=== PATIENT | female | born 1950 | race Caucasian/White ===

== ENCOUNTER 2018-12-30 08:40 | Day surgery (SDC) | payer MEDICARE, SELFPAY ==
[2018-12-22 09:17] VITALS: BMI 32.2
[2018-12-30] VITALS (11 sets, daily range): BP systolic 88–173; BP diastolic 67–108; PULSE 68–86; RESP 16–18; TEMP 36.1–36.6; O2SAT 97–100; BMI 30.9
--- NOTE | 2018-12-30 10:15 | EGD_PTH ---
PATIENT: LAURITA ELMORE LOC: EN U#:[id number] AGE/SX: 68/F ROOM: RE12/30/[address]: Dr. Darian Cohen MD : 1950 BED: DIS: 12/30/2018 SPEC #: [id number] RECD: 12/30/18 13:16 STATUS: TAMIKA KWABENA #: [id number] DUNCAN: 12/30/18 10:[address]: Darian Cohen DEPT: SURGICAL PATHOLOGY RECD BY: Jorge Calderon ENTERED: 12/30/18 13:35 SP TYPE: EGD BIOPSY OTHR DR: Dr. Micky Jaimes MD Tissues: A - Gastric mucous membrane B - Gastric mucous membrane C - Esophageal mucous membrane Procedures: PAS Fungus (control) Special Stain Group I Surgery Specimen Level IV HEADER OPERATION: Colonoscopy, EGD (MOD) PRE-OP DIAGNOSIS: Anemia, rectal bleeding, history of Jennings's, family history of colon cancer TISSUE SUBMITTED: A - Antral biopsy and H. pylori, B - Fundic polyp, C - Distal esophagus MICROSCOPIC DIAGNOSIS A. Gastric antrum, biopsy: Mild chronic gastritis. See comment. B. Gastric fundic polyp, biopsy: Fundic gland polyp. C. 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 Fragments of gastric mucosa with mild hyperplastic change. Squamous mucosa with focal acute inflammation. Fibrinopurulent material suggestive of ulcer. Indefinitive for mild dysplasia. See comment. AM:mark 01/02/19 COMMENT A. The results of immunohistochemistry for Helicobacter pylori will be reported separately ([id number]). C. Immunohistochemistry ([id number]) supports the above diagnosis. PASF stain is negative for fungal organisms. Matched control is appropriate. Case has been reviewed in consultation with Dr. Jorge who concurs with the above diagnosis. IDC:SJ MICROSCOPIC DESCRIPTION Slides are reviewed. GROSS DESCRIPTION A - Received in fixative is one container labeled with the patient's name and designated antral biopsy. The specimen consists of one irregular fragment of light duke soft tissue that measures 0.3 x 0.3 x 0.1 cm. The specimen is totally submitted in one cassette. B - Received in fixative is one container labeled with the patient's name and designated fundic polyp. The specimen consists of one irregular fragment of light duke soft tissue that measures 0.5 x 0.3 x 0.1 cm. The specimen is totally submitted in one cassette. C - Received in fixative is one container labeled with the patient's name and designated distal esophagus. The specimen consists of multiple irregular fragments of light duke soft tissue that in aggregate measure 1.5 x 1 x 0.1 cm. The specimen is totally submitted in one cassette. / SJ:rg 12/30/18 TC:4 CPT: 35521 x3, 43394
--- NOTE | 2018-12-30 10:15 | IMM_PTH ---
PATIENT: LAURITA ELMORE LOC: EN U#:[id number] AGE/SX: 68/F ROOM: RE12/30/[address]: Dr. Darian Cohen MD : 1950 BED: DIS: 12/30/2018 SPEC #: [id number] RECD: 12/30/18 15:42 STATUS: TAMIKA KWABENA #: [id number] DUNCAN: 12/30/18 10:[address]: Darian Cohen DEPT: IMMUNOHISTOCHEMISTRY RECD BY: Nazia Stuart ENTERED: 12/30/18 15:42 SP TYPE: IMMUNO OTHR DR: Dr. Micky Jaimes MD Tissues: A - Stomach, NOS Procedures: H Pylori (initial) P53 (initial) MASON-2 (add) PHYSICIAN & INSTITUTION [place] [id number] SPECIMEN INFORMATION: Tissue Source: A - Antral biopsy, C - Distal esophagus Clinical Info: Anemia, rectal bleeding, history of Jennings's, family history colon CA Specimen Number: [id number] A & C CPT code: 93593 x2, 83178 METHODOLOGY: Deparaffinized sections of prefer/formalin-fixed tissue or PAP/DQ stained slides are incubated with monoclonal/polyclonal antibodies/oligonucleotide probes. Localization is made via biotin free immunoperoxidase method. Appropriate controls are performed and reacted as expected. Results on target cell population are indicated in the following table: RESULTS: ANTIBODY / CLONE RESULT Block A H Pylori (polyclonal) negative Block C P53 (DO-7) positive, <25% MASON-2 (SP21) positive These tests were developed and their performance characteristics determined by [facility]. They may not have been cleared or approved by the U.S. Food and Drug Administration. The FDA has determined that such clearance or approval is not necessary. INTERPRETATION: A. Antral biopsy: Negative for Helicobacter pylori organisms. C. Distal esophagus, biopsy: Intestinal metaplasia. Indefinite for low grade dysplasia. AM:mark 01/03/19 Case has been reviewed in consultation with Dr. Jorge who concurs with the above diagnosis. IDC:[id number]
--- NOTE | 2018-12-30 11:33 | OP.ENDO_ITS ---
Patient Name: Christina Zamora Procedure Date: 12/30/2018 10:42 AM Date of : 1950 Age: 68 Procedure: Upper GI endoscopy Indications: Iron deficiency anemia Providers: Darian Cohen MD Medicines: Midazolam 2 mg IV, Meperidine 50 mg IV Complications: No immediate complications. Procedure: Pre-Anesthesia Assessment: - Prior to the procedure, a History and Physical was performed, and patient medications and allergies were reviewed. The patient's tolerance of previous anesthesia was also reviewed. The risks and benefits of the procedure and the sedation options and risks were discussed with the patient. All questions were answered, and informed consent was obtained. Prior Anticoagulants: The patient has taken no previous anticoagulant or antiplatelet agents. ASA Grade Assessment: II - A patient with mild systemic disease. After reviewing the risks and benefits, the patient was deemed in satisfactory condition to undergo the procedure. After obtaining informed consent, the endoscope was passed under direct vision. Throughout the procedure, the patient's blood pressure, pulse, and oxygen saturations were monitored continuously. The gastroscope was introduced through the mouth, and advanced to the second part of duodenum. The upper GI endoscopy was accomplished without difficulty. The patient tolerated the procedure well. Moderate Sedation: Moderate (conscious) sedation was personally administered by the endoscopist. The following parameters were monitored: oxygen saturation, heart rate, blood pressure, and response to care. Total physician intraservice time was 15 minutes. Scope In: 11:01:48 AM Scope Out: 11:11:21 AM Total Procedure Duration Time 0 hours 9 minutes 33 seconds Findings: LA Grade B (one or more mucosal breaks greater than 5 mm, not extending between the tops of two mucosal folds) esophagitis with no bleeding was found 34 cm from the incisors. Biopsies were taken with a cold forceps for histology. A large hiatal hernia was present. Diffuse mildly erythematous mucosa without bleeding was found in the gastric antrum. Biopsies were taken with a cold forceps for histology. Multiple sessile polyps with no stigmata of recent bleeding were found in the gastric fundus. Biopsies were taken with a cold forceps for histology. The examined duodenum was normal. Impression: - LA Grade B reflux esophagitis. Rule out Jennings's esophagus. Biopsied. - Large hiatal hernia. Very large area of suspected Jennings's and reflux and hiatal hernia--extensive - Erythematous mucosa in the antrum. Biopsied. - Multiple gastric polyps. Biopsied. - Normal examined duodenum. Recommendation: - Discharge patient to home. - Resume previous diet. - Continue present medications. - Return to my office in 1 week. Procedure Code(s): --- Professional --- 33937, Esophagogastroduodenoscopy, flexible, transoral; with biopsy, single or multiple 92045, 59, Moderate sedation services provided by the same physician or other qualified health healthcare network consultant performing the diagnostic or therapeutic service that the sedation supports, requiring the presence of an independent trained observer to assist in the monitoring of the patient's level of consciousness and physiological status; initial 15 minutes of intraservice time, patient age 5 years or older Diagnosis Code(s): --- Professional --- K21.0, Gastro-esophageal reflux disease with esophagitis K44.9, Diaphragmatic hernia without obstruction or gangrene K31.89, Other diseases of stomach and duodenum K31.7, Polyp of stomach and duodenum D50.9, Iron deficiency anemia, unspecified CPT copyright 2017 [employer]. All rights reserved. The codes documented in this report are preliminary and upon oil well engineer review may be revised to meet current compliance requirements. Darian Cohen MD 12/30/2018 11:32:10 AM This report has been signed electronically. Number of Addenda: 0 Note Initiated On: 12/30/2018 10:42 AM
--- NOTE | 2018-12-30 11:36 | OP.ENDO_ITS ---
Patient Name: Christina Zamora Procedure Date: 12/30/2018 11:13 AM Date of : 1950 Age: 68 Procedure: Colonoscopy Indications: Iron deficiency anemia Providers: Darian Cohen MD Medicines: Midazolam 1 mg IV, Meperidine 25 mg IV Patient Profile: Last Colonoscopy: September 2013. Complications: No immediate complications. Procedure: Pre-Anesthesia Assessment: - Prior to the procedure, a History and Physical was performed, and patient medications and allergies were reviewed. The patient's tolerance of previous anesthesia was also reviewed. The risks and benefits of the procedure and the sedation options and risks were discussed with the patient. All questions were answered, and informed consent was obtained. Prior Anticoagulants: The patient has taken no previous anticoagulant or antiplatelet agents. ASA Grade Assessment: II - A patient with mild systemic disease. After reviewing the risks and benefits, the patient was deemed in satisfactory condition to undergo the procedure. After I obtained informed consent, the scope was passed under direct vision. Throughout the procedure, the patient's blood pressure, pulse, and oxygen saturations were monitored continuously. The Colonoscope was introduced through the anus and advanced to the cecum, identified by appendiceal orifice and ileocecal valve. The colonoscopy was performed without difficulty. The patient tolerated the procedure well. The quality of the bowel preparation was adequate to identify polyps. The ileocecal valve and the appendiceal orifice were photographed. Moderate Sedation: Moderate (conscious) sedation was personally administered by the endoscopist. The following parameters were monitored: oxygen saturation, heart rate, blood pressure, and response to care. Total physician intraservice time was 15 minutes. Scope In: 11:14:31 AM Scope Withdrawal Time 0 hours 7 minutes 25 seconds Scope Out: 11:26:20 AM Total Procedure Duration Time 0 hours 11 minutes 49 seconds Findings: Hemorrhoids were found on perianal exam. Multiple diverticula were found in the sigmoid colon and descending colon. Impression: - Hemorrhoids found on perianal exam. - Diverticulosis in the sigmoid colon and in the descending colon. - No specimens collected. Recommendation: - Discharge patient to home. - Resume previous diet. - Continue present medications. - Repeat colonoscopy in 5 years for surveillance. - Return to my office in 1 week. No source for lower GI blood loss Procedure Code(s): --- Professional --- 98708, Colonoscopy, flexible; diagnostic, including collection of specimen(s) by brushing or washing, when performed (separate procedure) 98070, 59, Moderate sedation services provided by the same physician or other qualified health nurse behavioral health care performing the diagnostic or therapeutic service that the sedation supports, requiring the presence of an independent trained observer to assist in the monitoring of the patient's level of consciousness and physiological status; initial 15 minutes of intraservice time, patient age 5 years or older Diagnosis Code(s): --- Professional --- K64.9, Unspecified hemorrhoids D50.9, Iron deficiency anemia, unspecified K57.30, Diverticulosis of large intestine without perforation or abscess without bleeding CPT copyright 2017 [employer]. All rights reserved. The codes documented in this report are preliminary and upon death surveys coder review may be revised to meet current compliance requirements. Darian Cohen MD 12/30/2018 11:35:07 AM This report has been signed electronically. Number of Addenda: 0 Note Initiated On: 12/30/2018 11:13 AM
== END 2018-12-30 12:30 | disposition home or self-care (01) ==
LOC: EN 08:43 → AC 08:46
PROVIDERS: Family Provider Family Medicine; PCP Family Medicine; Referring Provider Surgery; Visit Provider Surgery
PROC: 0DJD8ZZ Inspection of Lower Intestinal Tract, Via Natural or Artificial Opening Endoscopic (ICD-10-PCS; CPT 45378; principal; 2018-12-30 10:10)
DX: K21.0 Gastro-esophageal reflux disease with esophagitis (principal); K31.7 Polyp of stomach and duodenum; K44.9 Diaphragmatic hernia without obstruction or gangrene; K22.710 Barrett's esophagus with low grade dysplasia; K29.50 Unspecified chronic gastritis without bleeding; D50.9 Iron deficiency anemia, unspecified; K64.9 Unspecified hemorrhoids; K57.30 Diverticulosis of large intestine without perforation or abscess without bleeding; K62.5 Hemorrhage of anus and rectum; Z80.0 Family history of malignant neoplasm of digestive organs; I10 Essential (primary) hypertension; F32.9 Major depressive disorder, single episode, unspecified; M54.5 Low back pain; Z79.899 Other long term (current) drug therapy
CPT/HCPCS: 43239; G0105; 88305; 88312; 88341; 88342; 99152; 99153; J7120